=== PATIENT | male | born 1990 ===

== ENCOUNTER 2023-04-27 08:54 | Outpatient (CLI) | payer BC, SELFPAY ==
[2023-04-27 18:41] LABS: Alanine Aminotransferase 19 U/L (6-50); Albumin Level 4.3 g/dL (3.5-5.1); Alkaline Phosphatase 76 U/L (38-126); Anion Gap 6 mmol/L (8-16); Aspartate Amino Transferase 45 U/L (17-59); Bilirubin,Total 1.7 mg/dL (0.2-1.3); Blood Urea Nitrogen 17 mg/dL (9-20); Calcium 9.2 mg/dL (8.4-10.2); Carbon Dioxide 30 mmol/L (22-30); Chloride 98 mmol/L (98-107); Cholesterol 164 mg/dL (0-200); Estimated Glomerular Filt Rate > 60; Glucose 280 mg/dL (65-110); HDL Direct 51 mg/dL; Hematocrit 44.8 % (42.0-52.0); Hemoglobin 14.5 g/dL (14.0-18.0); Mean Corpuscular HGB Conc 32.4 g/dl (32-36); Mean Corpuscular Hemoglobin 28.9 pg (26-34); Mean Corpuscular Volume 89.4 fl (80-100); Platelet Count Result 261 k/mm3 (150-375); Potassium 4.6 mmol/L (3.4-5.0); Red Blood Count 5.01 M/mm3 (4.6-6.20); Red Cell Distribution Width 12.2 % (11.5-14.5); Sodium 134 mmol/L (137-145); Triglycerides 67 mg/dL (<150); White Blood Count 6.5 K/mm3 (4.5-10.0)
[2023-04-27 18:52] LABS: LDL Cholesterol Direct 90 mg/dL
[2023-04-27 19:10] LABS: Thyroid Stimulating Hormone 0.983 uIU/mL (0.465-4.680)
[2023-04-27 19:15] LABS: Creatinine Urine 116.7 mg/dL
[2023-04-27 19:20] LABS: MALB Creatinine Ratio 5.7 mg/g (0-30); Microalbumin Urine Random 6.6 mg/L (0-16.7)
[2023-04-27 19:38] LABS: Hemoglobin A1C 8.3 % (<5.7)
[2023-05-01 15:14] LABS: Testosterone Free 71.8 pg/mL (35.0-155.0); Testosterone Total 565 ng/dL (250-1100)
== END 2023-04-27 08:55 | disposition home or self-care (01) ==
LOC: ANHBWCLAB 08:56
PROVIDERS: PCP Nurse Practitioner Adult Health; Visit Provider Nurse Practitioner Adult Health
DX: E11.9 Type 2 diabetes mellitus without complications (principal); Z13.9 Encounter for screening, unspecified; R79.89 Other specified abnormal findings of blood chemistry
CPT/HCPCS: 36415; 80053; 80061; 82043; 83036; 84402; 84403; 84443; 85027